=== PATIENT | female | born 1995 | race Caucasian/White ===

== ENCOUNTER 2025-03-21 12:58 | Outpatient (CLI) | payer BC, SELFPAY ==
[2025-03-21 17:39] LABS: Chlamydia DNA Amplified* NOT DETECTED (No Detected); GC DNA Amplified* NOT DETECTED (No Detected)
[2025-03-23 22:19] LABS: HPV Source Cervix
[2025-03-27 08:36] LABS: Pap Test Digital Imaging Done
== END 2025-03-21 12:59 | disposition home or self-care (01) ==
PROVIDERS: Visit Provider Nurse Practitioner Family
DX: Z11.51 Encounter for screening for human papillomavirus (HPV) (principal); Z12.4 Encounter for screening for malignant neoplasm of cervix; Z11.3 Encounter for screening for infections with a predominantly sexual mode of transmission
CPT/HCPCS: 80053; 80061; 86592; 86703; 86706; 86803; 87340; 87491; 87591; 87624; 87625; 88141; 88142; 88175